=== PATIENT | female | born 1945 | race Caucasian/White ===

== ENCOUNTER 2023-02-12 15:40 | Emergency (ER) | payer MEDICARE, BC, SELFPAY ==
[2023-02-12 16:06] VITALS: BP 120/80; PULSE 87; RESP 16; TEMP 36.3; O2SAT 100; BMI 24.0
--- NOTE | 2023-02-12 17:49 | ED.EXTPRO ---
HPI - Extremity Problem General Date Seen: 02/12/23 Chief complaint: Insect Bite Stated complaint: Wasp bite Time Seen by Provider: 02/12/23 17:38 Source: patient Mode of arrival: ambulatory Limitations: no limitations History of Present Illness HPI Narrative: Patient is delightful 77-year-old female. Who presents here with a red right calf. She notes that she was stung by a wasp on the right calf, on was seen in urgent care yesterday and prescribed Keflex. The area is itchy, but not hot, she has had no fevers or chills, she had a previous wasps sting a week earlier on the left ankle. It did swell up although not this much, and she took Benadryl and improved markedly. He describes no nausea vomiting weakness, but the redness is now outside the lines, which concerned her. And brought her in to be seen. She just got over being treated for a vaginal infection for which she was on metronidazole. MD Complaint: extremity pain Location: right Quality: other (Itchy) Radiation: none Relieving factors: elevation Exacerbating factors: nothing Associated symptoms: denies other symptoms Related Data Previous Rx's Medication Instructions Recorded cephalexin 500 mg capsule 500 mg PO Q8H 7 days #21 caps 02/11/23 Allergies Allergy/AdvReac Type Severity Reaction Status Date / Time No Known Drug Allergies Allergy Verified 02/12/23 16:14 Review of Systems Status of ROS: Reports: 6 or more systems reviewed and unremarkable except as noted in History and below PFSH PFSH Social History Smoking Status: Never smoker Do you use any of these nicotine containing products: None Second hand tobacco smoke exposure: No How often do you have a drink containing alcohol: 2-3 times a week AUDIT-C Alcohol total score: 3 Non-prescribed substance use: denies use Exam Narrative: Exam Narrative: On examination room 4 she is delightful she is in no apparent distress examination of the right leg shows an area circumscribed with redness, that blanches. There is no heat within it, it is itchy, and is not hard, the calf that is. Pulses are normal, she is able to walk normally. I discussed with her that I think that this is just a bee sting, and allergic reaction secondary to this. I do not think this is secondary infection, in fact I think taking the Keflex will likely cause other issues. I would recommend her take Benadryl 50 mg every 8 hours, and return here if she has any blisters within the redness, or increasing pain, or fevers. Which she has none currently. Elevation, elevation, elevation of her extremity above the level of her heart will markedly help this. Would expect this to go on for the next 7-10 days. And this likely was just because her immune system was primed from the previous bee sting. Const: Vital Signs, click to edit/add: Vital Signs - 24 hr 02/12/23 16:06 Temperature 97.3 F L Pulse Rate [Pulse Oximeter] 87 Respiratory Rate 16 Blood Pressure [Ri ght Upper Arm] 120/80 Pulse Oximetry 100 Oxygen Delivery Me thod Room Air Documenting provider has reviewed patient's vital signs: yes Course Vital Signs Vital signs: Initial Vital Signs Temperature 97.3 F L 02/12/23 16:06 Temperature Source Temporal Artery Scan 02/12/23 16:06 Pulse Rate 87 02/12/23 16:06 Respiratory Rate 16 02/12/23 16:06 Blood Pressure 120/80 02/12/23 16:06 Blood Pressure Mean 93 02/12/23 16:06 Blood Pressure Position Sitting 02/12/23 16:06 Pulse Oximetry 100 02/12/23 16:06 Oxygen Delivery Method Room Air 02/12/23 16:06 Vital Signs Temperature 97.3 F L 02/12/23 16:06 Pulse Rate 87 02/12/23 16:06 Respiratory Rate 16 02/12/23 16:06 Blood Pressure 120/80 02/12/23 16:06 Pulse Oximetry 100 02/12/23 16:06 Oxygen Delivery Method Room Air 02/12/23 16:06 Temperature 97.3 F L 02/12/23 16:06 Pulse Rate 87 02/12/23 16:06 Respiratory Rate 16 02/12/23 16:06 Blood Pressure 120/80 02/12/23 16:06 Pulse Oximetry 100 02/12/23 16:06 Oxygen Delivery Method Room Air 02/12/23 16:06 Discharge Plan Discharge Clinical Impression: Allergic reaction to bee sting Patient Disposition: Home, Self-Care Condition: Stable Instructions: Insect Bite or Sting (ED) Additional Instructions: This is an allergic reaction, I do not think this is cellulitis. But would stop the Keflex, Benadryl 50 mg every 8 hours. Elevation of your leg, elevation of her leg, elevation of your leg. The more you do this the better it will get, the redness will likely get a little worse before it gets better. Ice is helpful If he get blisters on her skin within the redness, or he get a fever then come back and see us. Activity Level: Light activity Prescriptions: No Action cephalexin 500 mg capsule 500 mg PO Q8H 7 Days Qty: 21 0RF Stand Alone Forms: [employer] Info Instructions
[2023-02-12 18:00] VITALS: BP 120/80; PULSE 87; RESP 16; TEMP 36.3
== END 2023-02-12 18:00 | disposition home or self-care (01) ==
LOC: ED 17:55
PROVIDERS: Emergency Provider Family Medicine; PCP Family Medicine
DX: T63.441A Toxic effect of venom of bees, accidental (unintentional), initial encounter (principal)
CPT/HCPCS: 99282; 99283